=== PATIENT | female | born 1985 | race Asian ===

== ENCOUNTER 2017-04-23 11:38 | Emergency (ER) | payer SELFPAY ==
[~2017-04-23] VITALS: Ht 157.5 cm; Wt 50.3 kg
[2017-04-23] MEDS ORDERED: Lidocaine 2% Visc 15ml soln ORAL ONE (12:15)
[2017-04-23] MEDS ORDERED: Dicyclomine HCl 10mg/5ml oral soln ORAL ONE (12:15)
[2017-04-23] MEDS ORDERED: Ketorolac 30mg Inj IV ONE (12:30)
[2017-04-23] MEDS ORDERED: Tubing IV Cassette IV ONE (12:49)
[2017-04-23 13:00] LABS: APPEARANCE,URINE CLEAR; KETONES,URINE NEGATIVE (NEGATIVE); LEUKOCYTE ESTERASE ,URINE NEGATIVE (NEGATIVE); NITRITE,URINE NEGATIVE (NEGATIVE); PH,URINE 7 (4.5-8.0); PROTEIN,URINE NEGATIVE (NEGATIVE); UROBILINOGEN,URINE NORMAL MG/DL (0.0-1.0)
[2017-04-23 13:04] LABS: BACTERIA,URINE FEW /HPF; SQUAMOUS EPITHELIAL CELL,UR FEW /LPF (NONE/OCC); WBC,URINE 0-2 /HPF (0 - 2)
[2017-04-23 13:09] LABS: BASOPHILS % (AUTO) 0.4 % (0.0-2.0); EOSINOPHILS % (AUTO) 0.2 % (0.0-3.0); LYMPHOCYTES % (AUTO) 11.9 % (20.0-45.0); MEAN CORPUSCULAR HEMOGLOBIN 28.2 PG (27.0-31.0); MEAN CORPUSCULAR HGB CONC 32.1 G/DL (32.0-36.0); MEAN CORPUSCULAR VOLUME 88 FL (80-99); MEAN PLATELET VOLUME 7.2 FL (6.5-10.1); NEUTROPHILS % (AUTO) 82.5 % (45.0-75.0); PLATELET COUNT 274 K/UL (150-450); RED CELL DISTRIBUTION WIDTH 11.7 % (11.6-14.8); WHITE BLOOD COUNT 11.2 K/UL (4.8-10.8)
[2017-04-23 14:21] LABS: ALANINE AMINOTRANSFERASE 10 U/L (3-33); ALBUMIN/GLOBULIN RATIO 1.2 (1.0-2.7); ANION GAP 14 (5-15); ASPARTATE AMINO TRANSFERASE 17 U/L (5-40); CALCIUM 9.8 mg/dL (8.6-10.2); CARBON DIOXIDE 26 mEQ/L (20-30); CHLORIDE 94 mEQ/L (98-107); CREATININE 0.8 mg/dL (0.5-0.9); GLOMERULAR FILTRATION RATE > 60 mL/min (>60); HEMOLYSIS 2; LIPASE 31 U/L (< 60); POTASSIUM 3.5 mEQ/L (3.4-4.9); SODIUM 134 mEQ/L (135-145); TOTAL PROTEIN 8.5 g/dL (6.6-8.7)
[2017-04-23] MEDS ORDERED: Hydromorphone 0.5mg/0.5ml inj IVP ONE (14:30)
--- NOTE | 2017-04-23 15:26 | Emergency Room Report ---
History of Present Illness General Chief Complaint: Abdominal Pain Source: Patient Present Illness HPI Patient with abdominal pain and nausea. RNs report vomiting, but patient denies this to me. More on R abdomen, though diffuse. Pain 9/10, mostly constant, pressure with some radiation to back. No fever or chills. No diarrhea. Slight constipation, though last BM normal. Recently started antidepressant. Recently started taking iron as felt "counts were low". Problems with constipation with this in past. No dysuria/hematuria. She also felt some dyspnea with nausea. No cough. No sore throat, rash, joint pain, headache. Some anxiety as has complicated prior abdominal history. LNMP 1 month ago. Doesn't believe she is as had ovary removed (L) and problems with scarring of other fallopian tube. H/O appi with perf 1 month hospitalization. 2006. 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 Told they thought they saw a clot moving to lungs, but not treated for PE. Has had abdominal pain but not like this in inerim. Allergies: Coded Allergies: SULFA (SULFONAMIDE ANTIBIOTICS) (Verified Allergy, Severe, Hives, 04/23/17) Uncoded Allergies: SURGICAL TAPE (Allergy, Severe, 04/23/17) Patient History Past Medical History: see triage record Past Surgical History: appy, other - oppherec L Social History: Denies: smoking, alcohol use, drug use Social History Narrative with trina, from [place] Last Menstrual Period: 1 month Now: No Reviewed Nursing Documentation: PMH: Agreed, PSxH: Agreed Nursing Documentation-PMH Past Medical History: No History, Except For Review of Systems All Other Systems: negative except mentioned in HPI Physical Exam Vital Signs Date Time Temp Pulse Resp B/P (MAP) Pulse Ox O2 Delivery O2 Flow Rate FiO2 04/23/17 11:51 98.1 60 18 123/84 98 Room Air Sp02 EP Interpretation: reviewed, normal General Appearance: well appearing, no apparent distress, GCS 15 Head: normocephalic Eyes: bilateral eye normal inspection, bilateral eye PERRL ENT: moist mucus membranes Neck: supple Respiratory: lungs clear, normal breath sounds Cardiovascular #1: regular rate, rhythm Cardiovascular #2: 2+ radial (R) Gastrointestinal: normal inspection, normal bowel sounds, no mass, non- distended, no rebound, guarding - minimal epigastric area, tenderness Musculoskeletal: back normal, gait/station normal, normal range of motion Neurologic: alert, oriented x3, grossly normal Psychiatric: mood/affect normal, anxious - minimal Skin: normal inspection, warm/dry Medical Decision Making Diagnostic Impression: Primary Impression: Abdominal pain Qualified Codes: R10.13 - Epigastric pain Additional Impression: Dyspnea Qualified Codes: R06.00 - Dyspnea, unspecified ER Course Very complicated patient presents with abdominal pain and nausea. Consider SBO , diverticulitis, constipation, GItis, adhesions, UTI, stone. Slight dyspnea so need to evaluate lungs. Exam (VS) excludes PE. Still need CXR. Evaluation with labs and plain films. Will treat with IV hydration, zofran and toradol. Not surgical abdomen. Consider CT if abnormal xrays or labs. Labs with normal WBC and UA. Xrays below (evidence of iron in stool). Improved somewhat with toradol and zofran. Still with pain 5/10. Requested dilaudid. Pain much better. Abdomen soft. discussed KUB with patient. Patient stable for outpatient observation and treatment. Laboratory Tests Test 04/23/17 12:35 04/23/17 12:45 Urine Color Pale yellow Urine Appearance Clear Urine pH 7 (4.5-8.0) Urine Specific [place] 1.010 (1.005-1.035) Urine Protein Negative (NEGATIVE) Urine Glucose (UA) 2+ (NEGATIVE) H Urine Ketones Negative (NEGATIVE) Urine Occult Blood 2+ (NEGATIVE) H Urine Nitrite Negative (NEGATIVE) Urine Bilirubin Negative (NEGATIVE) Urine Urobilinogen Normal MG/DL (0.0-1.0) Urine Leukocyte Esterase Negative (NEGATIVE) Urine RBC 2-4 /HPF (0 - 2) H Urine WBC 0-2 /HPF (0 - 2) Urine Squamous Epithelial Cells Few /LPF (NONE/OCC) Urine Bacteria Few /HPF (NONE) Urine HCG, Qualitative Negative White Blood Count 11.2 K/UL (4.8-10.8) H Red Blood Count 4.70 M/UL (4.20-5.40) Hemoglobin 13.2 G/DL (12.0-16.0) Hematocrit 41.2 % (37.0-47.0) Mean Corpuscular Volume 88 FL (80-99) Mean Corpuscular Hemoglobin 28.2 PG (27.0-31.0) Mean Corpuscular Hemoglobin Concent 32.1 G/DL (32.0-36.0) Red Cell Distribution Width 11.7 % (11.6-14.8) Platelet Count 274 K/UL (150-450) Mean Platelet Volume 7.2 FL (6.5-10.1) Neutrophils (%) (Auto) 82.5 % (45.0-75.0) H Lymphocytes (%) (Auto) 11.9 % (20.0-45.0) L Monocytes (%) (Auto) 5.0 % (1.0-10.0) Eosinophils (%) (Auto) 0.2 % (0.0-3.0) Basophils (%) (Auto) 0.4 % (0.0-2.0) Sodium Level 134 mEQ/L (135-145) L Potassium Level 3.5 mEQ/L (3.4-4.9) Chloride Level 94 mEQ/L (98-107) L Carbon Dioxide Level 26 mEQ/L (20-30) Anion Gap 14 (5-15) Blood Urea Nitrogen 6 mg/dL (7-23) L Creatinine 0.8 mg/dL (0.5-0.9) Estimate Glomerular Filtration Rate > 60 mL/min (>60) Glucose Level 138 mg/dL (74-106) H Calcium Level 9.8 mg/dL (8.6-10.2) Total Bilirubin 0.2 mg/dL (0.0-1.2) Aspartate Amino Transferase (AST) 17 U/L (5-40) Alanine Aminotransferase (ALT) 10 U/L (3-33) Alkaline Phosphatase 65 U/L (35-104) Total Protein 8.5 g/dL (6.6-8.7) Albumin 4.7 g/dL (3.5-5.2) Globulin 3.8 g/dL Albumin/Globulin Ratio 1.2 (1.0-2.7) Lipase 31 U/L (< 60) Chest X-Ray Diagnostic Results Chest X-Ray Diagnostic Results : Chest X-Ray Ordered: Yes # of Views/Limited/Complete: 1 View Indication: Other EP Interpretation: Yes Interpretation: no consolidation, no effusion, no pneumothorax, no acute cardiopulmonary disease Impression: No acute disease Electronically Signed by: Michael Pettit MD Other X-Ray Diagnostic Results Other X-Ray Diagnostic Results : X-Ray ordered: abd # of Views/Limited Vs Complete: 1 View Indication: Pain EP Interpretation: Yes Interpretation: nonspecific bowel gas, no sbo, other - iron containing stool ascend colon Impression: Other Electronically Signed by: Michael Pettit MD Last Vital Signs Date Time Temp Pulse Resp B/P (MAP) Pulse Ox O2 Delivery O2 Flow Rate FiO2 04/23/17 15:49 98.1 69 16 100/66 98 Room Air Status: improved Disposition: HOME, SELF-CARE Condition: Improved Scripts Ondansetron Odt* (ZOFRAN ODT*) 4 Mg Tab.rapdis 4 MG ORAL Q8H Y for Nausea & Vomiting, #6 TAB 2 Refills Prov: Michael Pettit M.D. 04/23/17 Tramadol Hcl* (ULTRAM*) 50 Mg Tablet 50 MG ORAL Q6H Y for For Pain, #10 TAB 0 Refills Prov: Michael Pettit M.D. 04/23/17 Lactulose (LACTULOSE*) 20 Gm/30 Ml Solution 30 ML ORAL BID Y for constipation, #120 ML 2 Refills Prov: Michael Pettit M.D. 04/23/17 Referrals: NOT CHOSEN BECKY/,REFERRING (PCP) Michael Pettit M.D. Apr 23, 2017 15:26
[2017-04-23 15:30] VITALS: BP 100/66
[2017-04-23] MEDS ORDERED: LACTULOSE20 GM/301 ORAL (15:30)
[2017-04-23] MEDS ORDERED: ZOFRAN ODT4 MG ORAL (15:30)
[2017-04-23] MEDS ORDERED: TRAMADOL HCL50 MG ORAL (15:30)
[2017-04-23 15:49] VITALS: BP 100/66
--- NOTE | 2017-04-24 11:03 | Diagnostic Imaging Report ---
Indication: Dyspnea Comparison: None A single view chest radiograph was obtained. Findings: Cardiomediastinal appearance is within normal limits for age. Pulmonary vascularity is appropriate. The diaphragmatic contour is smooth and costophrenic angles are sharp. No pleural effusions are identified. The bones are unremarkable. Impression: No acute findings
--- NOTE | 2017-04-24 11:04 | Diagnostic Imaging Report ---
Indication: Abdominal pain Comparison: None Single view of the abdomen obtained Findings: Bowel gas pattern is nonspecific. No mass, ectopic calcifications, or abnormal gas collections are identified. The bones are unremarkable. Impression: No acute findings
== END 2017-04-23 15:29 | disposition home or self-care (01) ==
LOC: EMR 12:30
DX: R10.9 Unspecified abdominal pain (principal); R06.00 Dyspnea, unspecified; Z88.2 Allergy status to sulfonamides; Z91.048 Other nonmedicinal substance allergy status; R11.0 Nausea
CPT/HCPCS: 36415; 71010; 74000; 80053; 81003; 81025; 83690; 85025; 96361; 96374; 96375; 99284; J1170; J1885; J2405